=== PATIENT | female | born 1935 | race Caucasian/White ===

== ENCOUNTER 2021-08-18 15:04 | Inpatient (IN) | payer MEDICARE ==
[~2021-08-18] VITALS: Ht 154.9 cm; Wt 57.6 kg
[2021-08-18] MEDS ORDERED: ASPIRIN 81MG TABLET PO NR ×2 (16:00)
[2021-08-18] MEDS ORDERED: NITROGLYCERIN 0.4MG TABLET SL SL PRN (16:00)
[2021-08-18 16:11] LABS: EOSINOPHILS % 1.7 % (0.0-5.0); HEMATOCRIT. 38.4 % (36.0-48.0); HEMOGLOBIN. 12.7 g/dL (12.0-16.0); LYMPHOCYTES % 26.4 % (20.0-50.0); MEAN CORPUSCULAR VOLUME 84.3 fL (81.0-99.0); MEAN PLATELET VOLUME 7.2 fl (7.4-10.4); MONOCYTES % 7.7 % (2.0-8.0); NEUTROPHILS % 63.2 % (40.0-76.0); PLATELET 394 x1000/uL (130-400); RED BLOOD CELL COUNT 4.56 mill/uL (4.2-5.4); RED CELL DISTRIBUTION WIDTH 14.2 % (11.6-14.6)
[2021-08-18 16:15] LABS: CHLORIDE 98 mEq/L (98-107)
[2021-08-18 16:19] LABS: ETHANOL BLOOD < 10 mg/dL
[2021-08-18] MEDS ORDERED: MORPHINE SULFATE 2 MG/ML CPJ (NOT FOR IM USE) IV PRN (19:45)
[2021-08-18] MEDS ORDERED: ACETAMINOPHEN 325MG TABLET PO PRN ×2 (19:45)
[2021-08-18] MEDS ORDERED: GUAIFENESIN 200MG/10ML SUGAR FREE UDC PO PRN (19:45)
[2021-08-18] MEDS ORDERED: LORAZEPAM 0.5MG TABLET PO PRN (19:45)
[2021-08-18] MEDS ORDERED: DIPHENHYDRAMINE 50MG/ML VIAL IV PRN (19:45)
[2021-08-18] MEDS ORDERED: CLONIDINE 0.1MG TABLET PO PRN (19:45)
[2021-08-18] MEDS ORDERED: ONDANSETRON HCL 4MG/2ML INJ IV PRN (19:45)
[2021-08-18] MEDS ORDERED: MAGNESIUM/ALUMINUM HYDROXIDE/SIMETHICONE 30ML UDC PO PRN (19:45)
[2021-08-18] MEDS ORDERED: NALOXONE HCL 0.4MG/ML VIAL IV PRN (20:15)
[2021-08-18] MEDS ORDERED: ENOXAPARIN 40MG/0.4ML SYR SUBCUT SCH (20:30)
[2021-08-18] MEDS ORDERED: ZOLPIDEM TARTRATE 5MG TABLET PO PRN (21:00)
[2021-08-18] MEDS: ENALAPRIL 5MG TABLET PO SCH (21:58)
[2021-08-18] MEDS: ATORVASTATIN CALCIUM 20MG TABLET PO SCH (21:59)
[2021-08-18] MEDS: SODIUM CHLORIDE 0.9% INJ 3ML FLUSH IVF SCH (22:01)
[2021-08-18] MEDS: OMEPRAZOLE 20MG CAPSULE EXTENDED RELEASE PO SCH (22:18)
[2021-08-18 23:30] VITALS: BP 133/70
[2021-08-18] MEDS ORDERED: HYDRALAZINE 20MG/ML VIAL IV PRN (23:30)
[2021-08-19] MEDS ORDERED: OMEP20CA14 MT (01:01)
[2021-08-19] MEDS ORDERED: ENAL10TA19 MT (01:01)
[2021-08-19] MEDS ORDERED: ISOS10TA2 MT (01:05)
[2021-08-19] MEDS ORDERED: DIAZ5SOL3 PO (01:07)
[2021-08-19] MEDS: SODIUM CHLORIDE 0.9% INJ 3ML FLUSH IVF SCH ×3 (06:49→22:36)
[2021-08-19] MEDS: OMEPRAZOLE 20MG CAPSULE EXTENDED RELEASE PO SCH ×2 (06:49→22:35)
[2021-08-19 08:00] VITALS: BP 166/75
[2021-08-19] MEDS: ASPIRIN 81MG EC TABLET PO SCH (09:00)
[2021-08-19] MEDS: ENALAPRIL 5MG TABLET PO SCH ×2 (09:00→22:36)
[2021-08-19 12:00] VITALS: BP 121/67
[2021-08-19] MEDS ORDERED: REGADENOSON 0.4 MG/5 ML IV NR (12:00)
[2021-08-19] MEDS ORDERED: INFLUENZA VACCINE 05/PF 0.5 ML SYRINGE IM ONE (12:00)
[2021-08-19] MEDS ORDERED: PNEUMOCOCCAL 23-VAL P-SAC VAC 0.5 ML IM ONE (12:00)
[2021-08-19] MEDS: AMLODIPINE 5MG TABLET PO SCH (13:46)
[2021-08-19 16:23] VITALS: BP 130/49
[2021-08-19 20:00] VITALS: BP 144/65
[2021-08-19] MEDS ORDERED: ENOXAPARIN 30MG/0.3ML SYR SUBCUT SCH (20:00)
[2021-08-19] MEDS: ATORVASTATIN CALCIUM 20MG TABLET PO SCH (22:35)
[2021-08-20] VITALS: BP 119/63
[2021-08-20 04:00] VITALS: BP 99/45
[2021-08-20] MEDS: OMEPRAZOLE 20MG CAPSULE EXTENDED RELEASE PO SCH (06:40)
[2021-08-20 06:42] LABS: D-DIMER 0.64 mg/L FEU (<0.50); INR 1.1; PARTIAL THROMBOPLASTIN TIME 34.8 sec (23.4-31.0); PROTHROMBIN TIME 11.4 sec (9.6-11.0)
[2021-08-20] MEDS: SODIUM CHLORIDE 0.9% INJ 3ML FLUSH IVF SCH ×2 (06:51→13:57)
[2021-08-20 06:54] LABS: CHLORIDE 99 mEq/L (98-107)
[2021-08-20 07:05] LABS: LDL CHOLESTEROL 130 mg/dL (5-100)
[2021-08-20 07:06] LABS: HDL CHOLESTEROL 50 mg/dL (40-59)
[2021-08-20 07:17] LABS: BASOPHILS % 0.4 % (0.0-2.0); EOSINOPHILS % 0.5 % (0.0-5.0); HEMATOCRIT. 35.1 % (36.0-48.0); HEMOGLOBIN. 12.1 g/dL (12.0-16.0); LYMPHOCYTES % 14.1 % (20.0-50.0); MEAN CORPUSCULAR HEMOGLOBIN 28.6 pg (28.0-32.0); MEAN CORPUSCULAR VOLUME 83.1 fL (81.0-99.0); MONOCYTES % 6.5 % (2.0-8.0); NEUTROPHILS % 78.5 % (40.0-76.0); PLATELET 309 x1000/uL (130-400); RED BLOOD CELL COUNT 4.22 mill/uL (4.2-5.4); RED CELL DISTRIBUTION WIDTH 13.8 % (11.6-14.6)
[2021-08-20 08:00] VITALS: BP 102/61
[2021-08-20] MEDS: ASPIRIN 81MG EC TABLET PO SCH (08:54)
[2021-08-20] MEDS: AMLODIPINE 5MG TABLET PO SCH (08:57)
[2021-08-20] MEDS: ENALAPRIL 5MG TABLET PO SCH (08:57)
[2021-08-20] MEDS ORDERED: REGADENOSON 0.4 MG/5 ML IV ONE (10:15)
[2021-08-20 12:00] VITALS: BP 114/63
[2021-08-20 15:16] VITALS: BP 114/63
[2021-08-21] MEDS ORDERED: AMLODIPINE 2.5MG TABLET PO SCH (09:00)
== END 2021-08-20 17:02 | disposition home or self-care (01) | DRG 392 ==
LOC: ER 15:04 → MICUSO 17:51 → EDBEDREQTM 17:53 → EDBEDREQ 17:53 → 6WST 21:27
PROVIDERS: ADMIT Internal Medicine; ATTEND Internal Medicine
DX: K21.9 Gastro-esophageal reflux disease without esophagitis (principal); E78.00 Pure hypercholesterolemia, unspecified; E78.5 Hyperlipidemia, unspecified; F41.1 Generalized anxiety disorder; I10 Essential (primary) hypertension; Z20.822 Contact with and (suspected) exposure to COVID-19; Z90.49 Acquired absence of other specified parts of digestive tract; Z90.710 Acquired absence of both cervix and uterus; Z82.49 Family history of ischemic heart disease and other diseases of the circulatory system; Z82.3 Family history of stroke
CPT/HCPCS: 36415; 71045; 78452; 80048; 80053; 80061; 80320; 83880; 84484; 85025; 85379; 87426; 90686; 90732; 93005; 93017; 93306; 99285; A9500; J1650; J2785; G0480